=== PATIENT | male | born 1950 | race African-American/Black ===

== ENCOUNTER 2021-10-13 05:32 | Inpatient (IN) ==
[2021-10-06 11:46] LABS: Basophils % 0.6 % (0.0-0.8); Eosinophils # 0.3 10*3/uL (0.0-0.87); Eosinophils % 3.8 % (0.00-10.9); Hematocrit 40.1 VOL% (42.0-52.0); Hemoglobin 12.8 GM/DL (14.0-18.0); Immature Granulocytes % 0.1 %; Immature Granulocytes Absolute 0.01 #; Lymphocytes # 2.9 10*3/uL (1.4-4.0); Lymphocytes % 40.3 % (21.2-54.2); Mean Corpuscular HGB Conc 31.9 GM/DL (32-36); Mean Corpuscular Volume 86.6 FL (87-102); Mean Platelet Volume 11.6 FL (9.6-12.0); Monocytes # 0.6 10*3/uL (0.11-0.8); Monocytes % 7.9 % (1.7-12.7); Neutrophils % 47.3 % (38.7-73.9); Platelet Count 192 T/CUMM (130-400); Red Blood Count 4.63 MC/CUMM (3.8-5.5); Red Cell Distribution Width 13.5 % (9.3-17.3); White Blood Count 7.1 T/CUMM (4-12)
[2021-10-06 12:00] LABS: Calcium 9.5 MG/DL (8.5-10.1); Osmolality,Calculated 287.7 MOS/KG (273-304); Potassium 4.4 MMOL/L (3.5-5.1)
[2021-10-13] MEDS ORDERED: ALVIMOPAN 12 MG CAPSULE PO ONE (06:00)
[2021-10-13] MEDS ORDERED: ERTAPENEM 1,000 MG in SODIUM CHLORIDE 0.9% 100 ML IV ONE (06:00)
[2021-10-13] MEDS ORDERED: DIAZEPAM 5 MG TABLET PO ONE (06:27)
[2021-10-13] MEDS ORDERED: GABAPENTIN 400 MG CAPSULE PO ONE (06:27)
[2021-10-13] MEDS ORDERED: FAMOTIDINE 20 MG TABLET PO ONE (06:27)
[2021-10-13] MEDS ORDERED: ACETAMINOPHEN 500 MG TABLET PO ONE (06:27)
[2021-10-13] MEDS ORDERED: DEXAMETHASONE 4 MG/1 ML VIAL ONE (06:29)
[2021-10-13] MEDS ORDERED: BUPIVACAINE MPF 0.25% 30 ML VIAL ONE (06:29)
[2021-10-13] MEDS ORDERED: SEVOFLURANE 1 UNIT/15 MINUTE INH ONE ×2 (06:29→06:34)
[2021-10-13] MEDS ORDERED: GABAPENTIN 400 MG CAPSULE ONE (06:30)
[2021-10-13] MEDS ORDERED: LACTATED RINGERS 1,000 ML IV SCH (06:30)
[2021-10-13] MEDS ORDERED: DIAZEPAM 5 MG TABLET ONE (06:30)
[2021-10-13] MEDS ORDERED: FAMOTIDINE 20 MG TABLET ONE (06:31)
[2021-10-13] MEDS ORDERED: ACETAMINOPHEN 500 MG TABLET ONE (06:31)
[2021-10-13] MEDS ORDERED: MIDAZOLAM 2 MG/2 ML VIAL ONE (06:33)
[2021-10-13] MEDS ORDERED: LIDOCAINE 2% 5 ML VIAL ONE (06:33)
[2021-10-13] MEDS ORDERED: propofoL 200 MG/20 ML VIAL IV ONE ×2 (06:33)
[2021-10-13] MEDS ORDERED: fentaNYL 100 MCG/2 ML VIAL ONE ×2 (06:33→07:54)
[2021-10-13] MEDS ORDERED: BUPIVACAINE MPF 0.25% 10 ML VIAL ONE (06:51)
[2021-10-13] MEDS ORDERED: TISSUE ADHESIVE 1 EACH APPLICATOR TOP ONE (06:51)
[2021-10-13] MEDS ORDERED: LIDOCAINE 1%/EPI INJ 20 ML VIAL ONE (06:52)
[2021-10-13] MEDS ORDERED: PHENYLEPHRINE DRIP 20 MG/250 ML PREMIX IV ONE (07:09)
[2021-10-13] MEDS ORDERED: ePHEDrine 50 MG/ML VIAL ONE (07:18)
[2021-10-13] MEDS ORDERED: INDOCYANINE GREEN 25 MG VIAL IV ONE (08:04)
[2021-10-13] MEDS ORDERED: ROCURONIUM 50 MG/5 ML VIAL IV ONE ×2 (08:24)
[2021-10-13] MEDS ORDERED: PHENYLEPHRINE 1 MG/10 ML SYRINGE IV ONE (10:06)
[2021-10-13] MEDS ORDERED: SUGAMMADEX 200 MG/2 ML VIAL IV ONE (10:16)
[2021-10-13] MEDS ORDERED: ONDANSETRON 4 MG/2 ML VIAL ONE ×2 (10:53→11:09)
[2021-10-13 11:09] LABS: Bilirubin,Urine Negative (Negative); Blood, Urine Large mg/dL (Negative); Glucose,Urine (UA) Negative (Negative); Ketones,Urine Negative (Negative); Mucus,Urine Occasional /LPF (Occasional); Nitrite,Urine Negative (Negative); Protein,Urine 100 mg/dL (Negative); RBC,Urine 39 /HPF (0-4); Sperm,Urine Many /HPF (Negative); Urine Appearance Clear (Clear); Urine Color Yellow (Yellow); Urine Urobilinogen 0.2 eU/dL (<2.0); Urine pH 5.5 (4.5-8.0)
[2021-10-13] MEDS ORDERED: HYDROmorphone 1 MG/1 ML SYRINGE ONE ×2 (11:09→11:37)
[2021-10-13] MEDS: HYDROmorphone 1 MG/1 ML SYRINGE IV PRN ×4 (11:10→11:48)
[2021-10-13] MEDS ORDERED: ONDANSETRON 4 MG/2 ML VIAL IV PRN ×2 (11:10→12:53)
[2021-10-13] MEDS ORDERED: HYDROmorphone 1 MG/1 ML SYRINGE IV PRN (12:53)
[2021-10-13 13:23] LABS: Basophils % 0.3 % (0.0-0.8); Eosinophils % 0.1 % (0.00-10.9); Hematocrit 38.8 VOL% (42.0-52.0); Hemoglobin 12.4 GM/DL (14.0-18.0); Immature Granulocytes % 0.3 %; Immature Granulocytes Absolute 0.05 #; Lymphocytes # 1.9 10*3/uL (1.4-4.0); Lymphocytes % 13.1 % (21.2-54.2); Mean Corpuscular Volume 87.8 FL (87-102); Mean Platelet Volume 10.3 FL (9.6-12.0); Monocytes # 0.9 10*3/uL (0.11-0.8); Monocytes % 6.3 % (1.7-12.7); Neutrophils % 79.9 % (38.7-73.9); Platelet Count 174 T/CUMM (130-400); Red Blood Count 4.42 MC/CUMM (3.8-5.5); Red Cell Distribution Width 13.2 % (9.3-17.3); White Blood Count 14.4 T/CUMM (4-12)
[2021-10-13 13:37] LABS: Calcium 8.7 MG/DL (8.5-10.1); Osmolality,Calculated 281.3 MOS/KG (273-304); Potassium 3.6 MMOL/L (3.5-5.1)
[2021-10-13] MEDS: KETOROLAC 30 MG/1 ML VIAL IV SCH ×2 (14:27→20:49)
[2021-10-13] MEDS: LACTATED RINGERS 1,000 ML IV SCH (14:28)
[2021-10-13] MEDS ORDERED: hydrALAZINE 20 MG/1 ML VIAL IV PRN (16:15)
[2021-10-13] MEDS ORDERED: PANTOPRAZOLE 40 MG TABLET PO SCH (17:00)
[2021-10-13] MEDS: ALVIMOPAN 12 MG CAPSULE PO SCH (20:49)
[2021-10-14] MEDS: LACTATED RINGERS 1,000 ML IV SCH ×2 (00:21→09:33)
[2021-10-14] MEDS: KETOROLAC 30 MG/1 ML VIAL IV SCH ×3 (01:55→12:55)
[2021-10-14] MEDS ORDERED: ENOXAPARIN 40 MG/0.4 ML SYRINGE SUBCUT SCH (05:00)
[2021-10-14 05:59] LABS: Basophils % 0.3 % (0.0-0.8); Eosinophils # 0.1 10*3/uL (0.0-0.87); Eosinophils % 0.8 % (0.00-10.9); Hemoglobin 11.7 GM/DL (14.0-18.0); Immature Granulocytes % 0.3 %; Immature Granulocytes Absolute 0.03 #; Lymphocytes # 2.1 10*3/uL (1.4-4.0); Lymphocytes % 19.4 % (21.2-54.2); Mean Corpuscular HGB Conc 32.5 GM/DL (32-36); Mean Corpuscular Volume 85.3 FL (87-102); Mean Platelet Volume 11.1 FL (9.6-12.0); Monocytes % 9.4 % (1.7-12.7); Neutrophils % 69.8 % (38.7-73.9); Platelet Count 180 T/CUMM (130-400); Red Blood Count 4.22 MC/CUMM (3.8-5.5); Red Cell Distribution Width 13.2 % (9.3-17.3); White Blood Count 10.8 T/CUMM (4-12)
[2021-10-14 06:18] LABS: Calcium 8.9 MG/DL (8.5-10.1); Potassium 3.5 MMOL/L (3.5-5.1)
[2021-10-14] MEDS ORDERED: BICALUTAMIDE 50 MG TABLET PO SCH (09:00)
[2021-10-14] MEDS: ALVIMOPAN 12 MG CAPSULE PO SCH (09:34)
[2021-10-14 11:49] VITALS: BP 145/45
== END 2021-10-14 14:58 | disposition home or self-care (01) | DRG 334 ==
LOC: N.OR 05:32 → N.SDSINP 05:33 → N.3E 12:42
PROVIDERS: ADMIT Surgery; ATTEND Surgery